=== PATIENT | male | born 1960 | race Caucasian/White ===

== ENCOUNTER 2019-07-02 01:50 | Emergency (ER) | payer OTHER ==
[2019-07-02] MEDS ORDERED: MORPHINE 4 MG/ML SYR ONE (02:32)
[2019-07-02] MEDS ORDERED: ONDANSETRON 4 MG/2 ML VIAL ONE (02:33)
[2019-07-02 02:54] LABS: Absolute Lymphocytes (CBC) 1.6 K/uL (0.7-4.9); Basophils % 0.2 % (0-1.3); Hematocrit 44.9 % (39.6-49.0); Lymphocytes % 11.4 % (15.3-44.8); MPV 9.2 fL (7.6-11.3); RBC Red Blood Cell Count 4.51 M/uL (4.33-5.43)
[2019-07-02] MEDS ORDERED: KETOROLAC 30 MG/ML INJ ONE (03:07)
[2019-07-02 03:11] LABS: Bilirubin Direct 0.2 mg/dL (0-0.2); Bilirubin Total 0.5 mg/dL (0.2-1.0); Potassium 3.9 mmol/L (3.5-5.1); Protein, Total 7.4 g/dL (6.4-8.2)
--- NOTE | 2019-07-02 04:40 | ER ---
Nurse's Notes [facility] Name: Efrem Euceda Age: 58 yrs Sex: Male : 1960 Arrival Date: 07/02/2019 Time: 01:54 Bed 19 Private MD: Diagnosis: Calculus of ureter Presentation: 07/02 02:10 Presenting complaint: Patient states: Low back pain mainly on the right side with cc3 bilateral lower abdominal pain radiating to groin that started 2-3 hours ago; had an episode of vomiting at home once. Transition of care: patient was not received from another setting of care. Onset of symptoms was July 02, 2019. Risk Assessment: Do you want to hurt yourself or someone else? Patient reports no desire to harm self or others. Initial Sepsis Screen: Does the patient meet any 2 criteria? No. Patient's initial sepsis screen is negative. Does the patient have a suspected source of infection? No. Patient's initial sepsis screen is negative. Care prior to arrival: None. 02:10 Method Of Arrival: Ambulatory cc3 02:10 Acuity: AMOS 3 cc3 Triage Assessment: 02:30 General: Appears in no apparent distress. uncomfortable, Behavior is calm, cooperative, cc3 appropriate for age. Pain: Complains of pain in right flank and bilateral lower abdomen Pain radiates to back and groin Pain currently is 10 out of 10 on a pain scale. Quality of pain is described as aching, sharp, Pain began 3 hours ago. EENT: No signs and/or symptoms were reported regarding the EENT system. Neuro: Level of Consciousness is awake, alert, obeys commands, Oriented to person, place, time, situation, Appropriate for age. Cardiovascular: Denies chest pain, Capillary refill < 3 seconds Patient's skin is warm and dry. Respiratory: Airway is patent Respiratory effort is even, unlabored, Respiratory pattern is regular, symmetrical. GI: Abdomen is round Reports lower abdominal pain, vomiting. : No signs and/or symptoms were reported regarding the genitourinary system. Derm: Skin is intact, is healthy with good turgor, Skin is pink, warm \T\ dry. normal. Musculoskeletal: Circulation, motion, and sensation intact. Range of motion: intact in all extremities. Historical: - Allergies: 02:10 No Known Allergies; cc3 - Home Meds: 02:10 Metoprolol Tartrate Oral [Active]; Allopurinol Oral [Active]; cc3 lisinopril-hydrochlorothiazide oral oral [Active]; prevastatin [Active]; Omeprazole Oral [Active]; Xarelto oral oral [Active]; - PMHx: 02:10 Atrial Fib; Kidney stones; Hypertension; cc3 - Immunization history:: Adult Immunizations up to date. - Social history:: Smoking status: Patient/guardian denies using tobacco, the patient reports quitting approximately 15 years ago. - Ebola Screening: : No symptoms or risks identified at this time. Screenin:30 Abuse screen: Denies threats or abuse. Denies injuries from another. Nutritional cc3 screening: No deficits noted. Tuberculosis screening: No symptoms or risk factors identified. Fall Risk Ambulatory Aid- None/Bed Rest/Nurse Assist (0 pts). Gait- Normal/Bed Rest/Wheelchair (0 pts) Mental Status- Oriented to own ability (0 pts). Assessment: 02:30 GI: Bowel sounds present X 4 quads. Abd is soft and non tender X 4 quads. cc3 03:00 Reassessment: Patient appears in no apparent distress at this time. Patient and/or cc3 family updated on plan of care and expected duration. Pain level reassessed. Patient is alert, oriented x 3, equal unlabored respirations, skin warm/dry/pink. Patient came back from CT scan department, awaiting result. 04:58 Reassessment: Patient appears in no apparent distress at this time. Patient and/or cc3 family updated on plan of care and expected duration. Pain level reassessed. Patient is alert, oriented x 3, equal unlabored respirations, skin warm/dry/pink. Dr. Ingram discharged the patient home with prescriptions given. IV cannula removed and patient left ER vitally stable and ambulatory. No valuables left in the patient's room. Patient denies pain at this time. Patient states feeling better. Patient states symptoms have improved. Vital Signs: 02:10 BP 150 / 94; Pulse 74; Resp 20 S; Temp 97.7(O); Pulse Ox 98% on R/A; Weight 99.79 kg cc3 (R); Height 5 ft. 8 in. (172.72 cm) (R); Pain 10/10; 03:55 BP 114 / 77; Pulse 73; Resp 17 S; Pulse Ox 96% on R/A; Pain 3/10; cc3 04:45 BP 109 / 77; Pulse 76; Resp 18 S; Pulse Ox 96% on R/A; Pain 0/10; cc3 02:10 Body Mass Index 33.45 (99.79 kg, 172.72 cm) cc3 ED Course: 01:54 Patient arrived in ED. es 02:12 Thanh Ingram MD is Attending Physician. tw4 02:30 Sangita Russell is Primary Nurse. cc3 02:30 Arm band placed on right wrist. Patient notified of wait time. cc3 02:30 Patient has correct armband on for positive identification. Bed in low position. Call cc3 light in reach. Side rails up X 1. Pulse ox on. NIBP on. 02:40 Inserted saline lock: 22 gauge in left wrist, using aseptic technique. Blood collected. cc3 02:48 Triage completed. cc3 02:50 Missed attempt(s): 20 gauge in right antecubital area. cm6 03:02 CT Stone Protocol In Process Unspecified. EDMS 05:00 No provider procedures requiring assistance completed. IV discontinued, intact, cc3 bleeding controlled, No redness/swelling at site. Pressure dressing applied. Administered Medications: 02:40 Drug: morphine 4 mg {Note: RASS 0.} Route: IVP; Site: left wrist; cc3 03:00 Follow up: Response: No adverse reaction; Pain is unchanged, physician notified; RASS: cc3 Alert and Calm (0) 02:43 Drug: Zofran 4 mg Route: IVP; Site: left wrist; cc3 03:56 Follow up: Response: No adverse reaction; Nausea is decreased cc3 03:05 Drug: TORadol 30 mg Route: IVP; Site: left wrist; cc3 03:56 Follow up: Response: No adverse reaction; Pain is decreased cc3 Outcome: 04:39 Discharge ordered by . tw4 04:58 Patient left the ED. cc3 04:58 Discharged to home ambulatory. cc3 04:58 Condition: stable 04:58 Discharge instructions given to patient, Instructed on discharge instructions, follow up and referral plans. medication usage, Demonstrated understanding of instructions, follow-up care, medications, Prescriptions given X 4. Signatures: Dispatcher [employer] EDMS Contreras Lizy es [place], Thanh, MD MD tw4 Sangita Russell cc3 Heather Cruz cm6 Corrections: (The following items were deleted from the chart) 03:57 03:55 BP 114 / 77; Pulse 73bpm; Resp 17bpm; Spontaneous; Pulse Ox 96% RA; cc3 cc3
--- NOTE | 2019-07-02 04:41 | EDPHYS ---
Physician Documentation [facility] Name: Efrem Euceda Age: 58 yrs Sex: Male : 1960 Arrival Date: 07/02/2019 Time: 01:54 Bed 19 Private MD: ED Physician Thanh Ingram HPI: 07/02 04:36 This 58 yrs old Male presents to ER via Ambulatory with complaints of tw4 Possible Kidney Stone. 04:36 The patient presents with flank pain, described as sharp, of the right low back, that tw4 radiates to the groin, right femoral area and right inguinal area. Onset: The symptoms/episode began/occurred just prior to arrival, 2 hour(s) ago. Modifying factors: The symptoms are alleviated by nothing, the symptoms are aggravated by nothing. Associated signs and symptoms: The patient has no apparent associated signs or symptoms. Severity of symptoms: At their worst the symptoms were moderate, in the emergency department the symptoms are unchanged. The patient has experienced similar episodes in the past, several times, and the symptoms today are exactly the same, to when the patient was apparently diagnosed with kidney stones. Historical: - Allergies: 02:10 No Known Allergies; cc3 - Home Meds: 02:10 Metoprolol Tartrate Oral [Active]; Allopurinol Oral [Active]; cc3 lisinopril-hydrochlorothiazide oral oral [Active]; prevastatin [Active]; Omeprazole Oral [Active]; Xarelto oral oral [Active]; - PMHx: 02:10 Atrial Fib; Kidney stones; Hypertension; cc3 - Immunization history:: Adult Immunizations up to date. - Social history:: Smoking status: Patient/guardian denies using tobacco, the patient reports quitting approximately 15 years ago. - Ebola Screening: : No symptoms or risks identified at this time. ROS: 04:36 Constitutional: Negative for fever, chills, and weight loss, Eyes: Negative for injury, tw4 pain, redness, and discharge, Cardiovascular: Negative for chest pain, palpitations, and edema, Respiratory: Negative for shortness of breath, cough, wheezing, and pleuritic chest pain, Abdomen/GI: Negative for abdominal pain, nausea, vomiting, diarrhea, and constipation, MS/Extremity: Negative for injury and deformity, Skin: Negative for injury, rash, and discoloration, Neuro: Negative for headache, weakness, numbness, tingling, and seizure. 04:36 Back: Positive for flank pain, on the right. Exam: 04:36 Constitutional: This is a well developed, well nourished patient who is awake, alert, tw4 and in no acute distress. Head/Face: Normocephalic, atraumatic. Chest/axilla: Normal chest wall appearance and motion. Nontender with no deformity. No lesions are appreciated. Cardiovascular: Regular rate and rhythm with a normal S1 and S2. No gallops, murmurs, or rubs. Normal PMI, no JVD. No pulse deficits. Respiratory: Lungs have equal breath sounds bilaterally, clear to auscultation and percussion. No rales, rhonchi or wheezes noted. No increased work of breathing, no retractions or nasal flaring. Abdomen/GI: Soft, non-tender, with normal bowel sounds. No distension or tympany. No guarding or rebound. No evidence of tenderness throughout. MS/ Extremity: Pulses equal, no cyanosis. Neurovascular intact. Full, normal range of motion. Neuro: Awake and alert, GCS 15, oriented to person, place, time, and situation. Cranial nerves II-XII grossly intact. Motor strength 5/5 in all extremities. Sensory grossly intact. Cerebellar exam normal. Normal gait. 04:36 Back: CVA tenderness, is noted on the right. Vital Signs: 02:10 BP 150 / 94; Pulse 74; Resp 20 S; Temp 97.7(O); Pulse Ox 98% on R/A; Weight 99.79 kg cc3 (R); Height 5 ft. 8 in. (172.72 cm) (R); Pain 10/10; 03:55 BP 114 / 77; Pulse 73; Resp 17 S; Pulse Ox 96% on R/A; Pain 3/10; cc3 04:45 BP 109 / 77; Pulse 76; Resp 18 S; Pulse Ox 96% on R/A; Pain 0/10; cc3 02:10 Body Mass Index 33.45 (99.79 kg, 172.72 cm) cc3 MDM: 02:12 Patient medically screened. tw4 04:36 Differential diagnosis: Dawson catheter problem, prostatitis. Data reviewed: vital tw4 signs, nurses notes. Data interpreted: Pulse oximetry: Interpretation: normal. Counseling: I had a detailed discussion with the patient and/or guardian regarding: the historical points, exam findings, and any diagnostic results supporting the discharge/admit diagnosis. Medication response: morphine partially relieved the patient's pain, Toradol markedly relieved the patient's pain. Response to treatment: and as a result, I will discharge patient. Special discussion: I discussed with the patient/guardian in detail that at this point there is no indication for admission to the hospital. It is understood, however, that if the symptoms persist or worsen the patient needs to return immediately for re-evaluation. 04:36 Data reviewed: lab test result(s), CBC, electrolytes. Counseling: I had a detailed discussion with the patient and/or guardian regarding: lab results, radiology results. 07/02 02:13 Order name: Basic Metabolic Panel; Complete Time: 04:54 07/02 04:54 Interpretation: Normal except: CL 108; BUN 23; CRE 1.80; GFR 39. 07/02 02:13 Order name: CBC with Diff; Complete Time: 04:54 07/02 04:55 Interpretation: Normal except: WBC 13.8; KWABENA% 83.9; LYM% 11.4; NEUT A 11.5. 07/02 02:13 Order name: Creatinine for Radiology; Complete Time: 04:54 07/02 04:55 Interpretation: Normal except: CRE 1.76; GFR 40. 07/02 02:13 Order name: Hepatic Function; Complete Time: 04:54 07/02 04:55 Interpretation: Within normal limits. 07/02 02:13 Order name: Lipase; Complete Time: 04:54 07/02 04:55 Interpretation: Within normal limits: LIP 125. 07/02 02:13 Order name: CT Stone Protocol 07/02 02:13 Order name: IV Saline Lock; Complete Time: :44 07/02 02:13 Order name: Labs collected and sent; Complete Time: :44 Administered Medications: 02:40 Drug: morphine 4 mg {Note: RASS 0.} Route: IVP; Site: left wrist; cc3 03:00 Follow up: Response: No adverse reaction; Pain is unchanged, physician notified; RASS: cc3 Alert and Calm (0) 02:43 Drug: Zofran 4 mg Route: IVP; Site: left wrist; cc3 03:56 Follow up: Response: No adverse reaction; Nausea is decreased cc3 03:05 Drug: TORadol 30 mg Route: IVP; Site: left wrist; cc3 03:56 Follow up: Response: No adverse reaction; Pain is decreased cc3 Disposition: 07/02/19 04:39 Discharged to Home. Impression: Calculus of ureter. - Condition is Stable. - Discharge Instructions: Kidney Stones. - Prescriptions for Tylenol- Codeine #3 300-30 mg Oral Tablet - take 2 tablet by ORAL route every 6 hours As needed; 30 tablet. Zofran 4 mg Oral Tablet - take 1 tablet by ORAL route every 12 hours As needed; 6 tablet. Tramadol 50 mg Oral Tablet - take 1 tablet by ORAL route every 8 hours as needed; 12 tablet. Flomax 0.4 mg Oral Capsule, Sust. Release 24 hr - take 1 capsule by ORAL route once daily 1/2 hour following the same meal each day; 30 capsule. - Medication Reconciliation Form, Thank You Letter, Antibiotic Education, Prescription Opioid Use form. - Follow up: Private Physician; When: Upon discharge from the Emergency Department; Reason: If symptoms return, Recheck today's complaints, Continuance of care. - Problem is new. - Symptoms have improved. Signatures: Dispatcher [employer] Thanh Phan MD MD tw4 Sangita Russell cc3 Corrections: (The following items were deleted from the chart) 04:58 04:39 07/02/2019 04:39 Discharged to Home. Impression: Calculus of ureter. Condition is cc3 Stable. Forms are Medication Reconciliation Form, Thank You Letter, Antibiotic Education, Prescription Opioid Use. Follow up: Private Physician; When: Upon discharge from the Emergency Department; Reason: If symptoms return, Recheck today's complaints, Continuance of care. Problem is new. Symptoms have improved. tw4
--- NOTE | 2019-07-04 11:12 | RAD REPORT ---
EXAM DESCRIPTION: CT - Stone Protocol - 07/02/2019 6:04 am CLINICAL HISTORY: FLANK PAIN COMPARISON: None. TECHNIQUE: CT ABDOMEN PELVIS WITHOUT IV CONTRAST on 07/02/2019 2:13 AM CDT This exam was performed according to our departmental dose-optimization program, which includes autom ated exposure control, adjustment of the mA and/or kV according to patient size and/or use of iterati ve reconstruction technique. FINDINGS: Lower lungs are clear. Abdomen: The liver is normal in appearance. There is no biliary dilatation. There is a moderate hiata l hernia. Gallbladder is decompressed. The pancreas and spleen are normal in appearance. There are mu ltiple calculi within both kidneys measuring up to 6 mm. There is mild right hydronephrosis secondary to a 4 mm right UVJ calculus. There are small fat-containing bilateral hernias. Abdominal aorta is normal in course and caliber without aneurysm. There is no free air. There is no r etroperitoneal adenopathy. Pelvis: There is no bowel obstruction. Urinary bladder is unremarkable. There is no free fluid. Appen samy is normal. Skeleton: There are no acute osseous findings. No suspicious bony lesions. IMPRESSION: Bilateral nephrolithiasis with mildly obstructing 4 mm right UVJ calculus. Electronically signed by: Javi Echeverria MD 07/02/2019 3:14 AM CDT Due to temporary technical issues with the PACS/Fluency reporting system, reports are being signed by the in house radiologist as a courtesy to ensure prompt reporting. The interpreting radiologist is f ully responsible for the content of the report.
== END 2019-07-02 04:58 | disposition home or self-care (01) ==
LOC: ER 01:50
DX: N20.1 Calculus of ureter (principal); I10 Essential (primary) hypertension; I48.91 Unspecified atrial fibrillation; Z79.01 Long term (current) use of anticoagulants; Z87.442 Personal history of urinary calculi
CPT/HCPCS: 85025; 80048; 36415; 80076; 83690; 76377; 74176; 96375; 96374; 99284; J2405

== ENCOUNTER 2023-09-30 11:05 | Emergency (ER) | payer BC ==
--- OUTSIDE RECORDS SUMMARY | 2023-09-30 11:09 | XMS REPORT | Continuity of Care Document ---
:1960 Author Organization [facility] t Address [address] [place] [address] [place] [id number] Care Team Providers Name Role Phone Unavailable Unavailable Unavailable Problems This patient has no known problems. Allergies, Adverse Reactions, Alerts This patient has no known allergies or adverse reactions. Social History Social Habit Start Date Stop Date Quantity Comments Source Sexual orientation Method [facility] Sex Assigned At [birth year] [facility] 00:00:00 00:00:00 Smoking Status Start Date Stop Date Source Tobacco smoking consumption unknown [facility] Medications This patient has no known medications. Procedures This patient has no known procedures. Encounters Start End Encounter Admission Attending Care Care Encounter Source Date/Time Date/Time Type Type Clinicians Facility Department ID 2022-08-06 2022-08-06 Emergency [facility] [id number] [place] 00:00:00 00:00:[address] Results This patient has no known results.
[2023-09-30] MEDS ORDERED: MAGNESIUM SULFATE 1 gm IVPB 1 GM/100 ML BAG IV ONE (11:43)
[2023-09-30 11:46] LABS: Absolute Lymphocytes (CBC) 1.3 K/uL (0.7-4.9); Lymphocytes % 16.3 % (15.3-44.8); MPV 8.1 fL (7.6-11.3); Platelets 220 thou/uL (152-406)
[2023-09-30 11:54] LABS: Specific Gravity 1.014 (1.005-1.030); Urine Bilirubin NEGATIVE (Negative); Urine Blood Negative (Negative); Urine Clarity Clear (Clear); Urine Color Light-Yellow (Yellow); Urine Glucose NEGATIVE (Negative); Urine Protein NEGATIVE (Negative); Urine Urobilinogen Normal (Normal); Urine pH 5.5 (5.0-7.0)
--- NOTE | 2023-09-30 12:20 | RAD REPORT ---
EXAM DESCRIPTION: CT - Stone Protocol - 09/30/2023 11:22 am CLINICAL HISTORY: pain, hx of stones COMPARISON: Stone Protocol dated 07/02/2019; CTSTONE PROTOCOL dated 06/09/2014; CT-STONE PROTOCOL dated 12/29/2007; CT-STONE PROTOCOL dated 12/26/2007 TECHNIQUE: Thin cut axial CT imaging of the abdomen and pelvis was performed without IV contrast. Mu ltiplanar reformats were generated and reviewed. All CT scans are performed using dose optimization technique as appropriate and may include automated exposure control or mA/KV adjustment according to patient size. FINDINGS: No suspicious findings in the lung bases. The liver, spleen, adrenal glands, and pancreas show no suspicious findings. Gallbladder and biliary tree are also without suspicious finding. Symmetric renal contour, without suspicious parenchymal findings within limits of noncontrast techniq ue. Left mild hydro nephrosis and hydroureter. 6 millimeter distal left ureter calculus, approximatel y 2 cm proximal to the vesicoureteral junction. Other bilateral nonobstructing renal calculi, largest at the right lower pole measuring 9 millimeter, and the left interpolar region also measuring 9 mill imeter. Moderate to large hiatal hernia. No dilated bowel loops or bowel wall thickening. No free air, free f luid or inflammatory stranding. Bilateral inguinal hernias containing fat. No suspicious mass or bulk y lymphadenopathy. The urinary bladder is without significant finding. No suspicious bony findings. IMPRESSION: Mild left hydroureteronephrosis. 6 millimeter nonobstructing calculus along the distal l eft ureter. Other bilateral nonobstructing renal calculi, up to 9 millimeter in greatest dimension. Moderate to large hiatal hernia. The findings were communicated to Rodrigo Jackson on 09/30/2023 at 11:55 hours.
[2023-09-30 12:29] LABS: Albumin 3.1 g/dL (3.4-5.0); Bilirubin Total 0.5 mg/dL (0.2-1.0); Potassium 3.8 mEq/L (3.5-5.1); Protein, Total 6.6 g/dL (6.4-8.2)
--- NOTE | 2023-09-30 12:39 | ER ---
Nurse's Notes [facility] Name: Efrem Euced[facility] Age: 63 yrs Sex: Male : 1960 Arrival Date: 09/30/2023 Time: 11:05 Bed 13 Private MD: Diagnosis: Calculus of ureter;Chronic kidney disease, unspecified Presentation: 09/30 11:15 Chief complaint: Left flank pain x 5 days. Seen at [facility] on 09/26, scan showed 4 mm hb obstructing stone in left proximal ureter, sent home on Flomax and Zofran. Coronavirus screen: At this time, the client does not indicate any symptoms associated with coronavirus-19. Ebola Screen: No symptoms or risks identified at this time. Initial Sepsis Screen: Does the patient meet any 2 criteria? No. Patient's initial sepsis screen is negative. Does the patient have a suspected source of infection? No. Patient's initial sepsis screen is negative. Risk Assessment: Do you want to hurt yourself or someone else? Patient reports no desire to harm self or others. Onset of symptoms was September 26, 2023. 11:15 Method Of Arrival: Ambulatory hb 11:15 Acuity: AMOS 3 hb Triage Assessment: 12:00 General: Behavior is calm, cooperative, appropriate for age. ko1 Historical: - Allergies: 11:18 No Known Allergies; hb - PMHx: 11:18 Atrial Fib; Hypertension; Kidney stones; hb - Immunization history:: Adult Immunizations up to date. - Social history:: Smoking status: Patient denies any tobacco usage or history of. - Family history:: not pertinent. - Hospitalizations: : No recent hospitalization is reported. Screenin:30 [facility] ED Fall Risk Assessment (Adult) History of falling in the last 3 months, ko1 including since admission No falls in past 3 months (0 pts) Confusion or Disorientation No (0 pts) Intoxicated or Sedated No (0 pts) Impaired Gait No (0 pts) Mobility Assist Device Used No (0 pt) Altered Elimination No (0 pt) Score/Fall Risk Level 0 - 2 = Low Risk Oriented to surroundings, Maintained a safe environment, Educated pt \T\ family on fall prevention, incl call for assistance when getting out of bed, Assessed \T\ reinforced patient's understanding of fall precautions, Provided non-skid footwear, Hourly rounding (assess needs \T\ fall precautionary measures) done, Used ambulatory aids as needed (educated on \T\ assisted with). Abuse screen: Denies threats or abuse. Denies injuries from another. Nutritional screening: No deficits noted. Tuberculosis screening: No symptoms or risk factors identified. Assessment: 11:15 General: Appears in no apparent distress. uncomfortable. Pain: Complains of pain in ko1 abdomen. Neuro: No deficits noted. Cardiovascular: No deficits noted. Respiratory: No deficits noted. GI: Bowel sounds present X 4 quads. Abd is soft X 4 quads. : No deficits noted. EENT: No deficits noted. Derm: No deficits noted. Musculoskeletal: No deficits noted. Vital Signs: 11:15 BP 130 / 85; Pulse 89; Resp 16; Temp 98.4(O); Pulse Ox 98% on R/A; Weight 99.79 kg; hb Height 5 ft. 8 in. ; Pain 5/10; 11:30 BP 114 / 82; Pulse 71; Resp 16; Pulse Ox 99% ; ko1 12:30 BP 121 / 83; Pulse 74; Resp 16; Pulse Ox 99% ; ko1 13:29 BP 118 / 80; Pulse 77; Resp 14; Pulse Ox 99% ; ko1 11:15 Body Mass Index 33.45 (99.79 kg, 172.72 cm) hb 11:15 Pain Scale: Adult hb ED Course: 11:09 Patient arrived in ED. mr 11:10 Charlene Pink, RN is Primary Nurse. ko1 11:10 Rodrigo Jackson MD is Attending Physician. rn 11:17 Triage completed. hb 11:18 Arm band placed on. hb 11:24 CT Stone Protocol In Process Unspecified. EDMS 11:40 Inserted saline lock: 22 gauge in left antecubital area, using aseptic technique. Blood ko1 collected. 11:43 CBC with Diff Sent. ko1 11:43 CMP Sent. ko1 11:43 Urinalysis w/ reflexes Sent. ko1 12:30 Patient has correct armband on for positive identification. Bed in low position. Call ko1 light in reach. Provided Education on: labs. Pulse ox on. NIBP on. 12:30 No provider procedures requiring assistance completed. ko1 13:29 IV discontinued, intact, bleeding controlled, No redness/swelling at site. Pressure ko1 dressing applied. Administered Medications: 11:42 Drug: Magnesium Sulfate IVPB 1 grams IVPB once over 1 hrs Route: IVPB; Infused Over: 1 ko1 hrs; Site: left antecubital; 13:07 Follow up: Response: No adverse reaction; IV Status: Completed infusion; IV Intake: ko1 100ml 12:42 Drug: Ketorolac IVP 15 mg IVP once Route: IVP; Site: left antecubital; ko1 13:07 Follow up: Response: No adverse reaction ko1 12:42 Drug: morphine IVP or IV 2 mg IVP once over 4 mins Route: IVP; Infused Over: 4 mins; ko1 Site: left antecubital; 13:07 Follow up: Response: No adverse reaction; Pain is decreased ko1 12:42 Drug: NS 0.9% IV 500 ml IV at bolus once Route: IV; Rate: bolus; Site: left antecubital;ko1 13:23 Follow up: Response: No adverse reaction; IV Status: Completed infusion; IV Intake: ko1 500ml Medication: 12:30 VIS not applicable for this client. ko1 Intake: 13:07 IV: 100ml; Total: 100ml. ko1 13:23 IV: 500ml; Total: 600ml. ko1 Outcome: 12:39 Discharge ordered by . rn 13:29 Discharged to home ambulatory, ko1 13:29 Condition: stable 13:29 Discharge instructions given to patient, Instructed on discharge instructions, follow up and referral plans. medication usage, urine strainer, Demonstrated understanding of instructions, follow-up care, medications, Prescriptions given X 2, 13:30 Patient left the ED. ko1 Signatures: Dispatcher [employer] EDWY Guera Seo, Reg Rodrigo James MD MD rn Baxter, Heather, RN RN hb Oliver, Kathy, RN RN ko1
--- NOTE | 2023-09-30 12:39 | EDPHYS ---
Physician Documentation [facility] Name: Efrem Euceda Age: 63 yrs Sex: Male : 1960 Arrival Date: 09/30/2023 Time: 11:05 Bed 13 Private MD: ED Physician Rodrigo Jackson HPI: 09/30 11:17 This 63 yrs old Male presents to ER via Unassigned with complaints of Possible Kidney rn Stone. 11:17 The patient presents with abdominal pain. Onset: The symptoms/episode began/occurred 4 rn day(s) ago. The symptoms radiate to abdomen. Associated signs and symptoms: Pertinent negatives: blood in stools, fever, vomiting, vomiting blood. The symptoms are described as crampy, sharp. Modifying factors: The symptoms are alleviated by Ibuprofen. the symptoms are aggravated by nothing. Severity of pain: At its worst the pain was moderate in the emergency department the pain has improved. The patient has experienced similar episodes in the past. Patient with history of multiple kidney stones in the past. Seen at [facility] emergency room a few days ago and diagnosed with a 4 mm left ureteral stone with mild hydro-. Reports pain has markedly improved with ibuprofen, but still has pain on the left side and is wondering if the stone is moving or if it stuck. No fever. No vomiting.. Historical: - Allergies: 11:18 No Known Allergies; hb - PMHx: 11:18 Atrial Fib; Hypertension; Kidney stones; hb - Immunization history:: Adult Immunizations up to date. - Social history:: Smoking status: Patient denies any tobacco usage or history of. - Family history:: not pertinent. - Hospitalizations: : No recent hospitalization is reported. ROS: 11:17 Constitutional: Negative for fever, chills, and weight loss, Cardiovascular: Negative rn for chest pain, palpitations, and edema, Respiratory: Negative for shortness of breath, cough, wheezing, and pleuritic chest pain, Abdomen/GI: Positive for left-sided abdominal pain Back: Negative for injury and pain, : Negative for injury, bleeding, discharge, and swelling, MS/Extremity: Negative for injury and deformity, Neuro: Negative for headache, weakness, numbness, tingling, and seizure, Exam: 11:17 Constitutional: This is a well developed, well nourished patient who is awake, alert, rn and in no acute distress. Ambulatory to room without assistance and appears comfortable Cardiovascular: Regular rate and rhythm. No pulse deficits. Respiratory: No increased work of breathing, no retractions or nasal flaring. Abdomen/GI: Soft, nontender, no distention Back: No spinal tenderness. No costovertebral tenderness. Full range of motion. Vital Signs: 11:15 BP 130 / 85; Pulse 89; Resp 16; Temp 98.4(O); Pulse Ox 98% on R/A; Weight 99.79 kg; hb Height 5 ft. 8 in. ; Pain 5/10; 11:30 BP 114 / 82; Pulse 71; Resp 16; Pulse Ox 99% ; ko1 12:30 BP 121 / 83; Pulse 74; Resp 16; Pulse Ox 99% ; ko1 13:29 BP 118 / 80; Pulse 77; Resp 14; Pulse Ox 99% ; ko1 11:15 Body Mass Index 33.45 (99.79 kg, 172.72 cm) hb 11:15 Pain Scale: Adult hb MDM: 11:10 Patient medically screened. rn 12:37 Differential diagnosis: non-specific abd pain, Ureterolithiasis, urinary tract rn infection. Data reviewed: vital signs, nurses notes, lab test result(s), radiologic studies, CT scan, and as a result, I will discharge patient. External Records Reviewed: Outside ED record: Reviewed ED record and results from [facility] emergency room a few days ago. Shows proximal left-sided stone with mild hydro-.. Care significantly affected by the following chronic conditions: Chronic Kidney Disease, Patient reports sees nephrology for chronic kidney disease.. Counseling: I had a detailed discussion with the patient and/or guardian regarding the historical points, exam findings, and any diagnostic results supporting the discharge/admit diagnosis, lab results, radiology results, the need for outpatient follow up, to return to the emergency department if symptoms worsen or persist or if there are any questions or concerns that arise at home. Response to treatment: the patient's symptoms have markedly improved after treatment, and as a result, I will discharge patient. Special discussion: I discussed with the patient/guardian in detail that at this point there is no indication for admission to the hospital. It is understood, however, that if the symptoms persist or worsen the patient needs to return immediately for re-evaluation. Based on the history and exam findings, there is no indication for further emergent testing or inpatient evaluation. I discussed with the patient/guardian the need to see the urologist for further evaluation of the symptoms. ED course: Stone has moved, was proximal few days ago and now distal with only 2 cm to go. Pain controlled. Will DC home with return precautions and urology follow-up. 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 I have personally reviewed all of the results, including but not limited to blood tests and imaging deemed necessary to safely discharge this patient at this time. All results given to and printed out for patient. I personally went over all the results with the patient and answered all questions. Patient will follow-up with PCP and or specialist as discussed. Return precautions given and understood.. 09/30 11:11 Order name: CBC with Diff; Complete Time: 12:13 rn 09/30 11:11 Order name: CMP; Complete Time: 12:31 rn 09/30 11:12 Order name: Urinalysis w/ reflexes; Complete Time: 12:13 rn 09/30 11:11 Order name: CT Stone Protocol; Complete Time: 12:21 rn 09/30 11:11 Order name: IV Saline Lock; Complete Time: 11:43 rn 09/30 11:11 Order name: Labs collected and sent; Complete Time: 11:43 rn 09/30 11:51 Order name: Labs - recollect needed: recollect green top; Complete Time: 12:06 bd Administered Medications: 11:42 Drug: Magnesium Sulfate IVPB 1 grams IVPB once over 1 hrs Route: IVPB; Infused Over: 1 ko1 hrs; Site: left antecubital; 13:07 Follow up: Response: No adverse reaction; IV Status: Completed infusion; IV Intake: ko1 100ml 12:42 Drug: Ketorolac IVP 15 mg IVP once Route: IVP; Site: left antecubital; ko1 13:07 Follow up: Response: No adverse reaction ko1 12:42 Drug: morphine IVP or IV 2 mg IVP once over 4 mins Route: IVP; Infused Over: 4 mins; ko1 Site: left antecubital; 13:07 Follow up: Response: No adverse reaction; Pain is decreased ko1 12:42 Drug: NS 0.9% IV 500 ml IV at bolus once Route: IV; Rate: bolus; Site: left antecubital;ko1 13:23 Follow up: Response: No adverse reaction; IV Status: Completed infusion; IV Intake: ko1 500ml Disposition Summary: 09/30/23 12:39 Discharge Ordered Notes: Location: Home rn Problem: new rn Symptoms: have improved rn Condition: Stable rn Diagnosis - Calculus of ureter rn - Chronic kidney disease, unspecified rn Followup: rn - With: Private Physician - When: As needed - Reason: Recheck today's complaints, Re-evaluation by your physician Discharge Instructions: - Discharge Summary Sheet rn - Kidney Stones rn - Renal Colic rn - Food Basics for Chronic Kidney Disease rn - Dietary Guidelines to Help Prevent Kidney Stones rn Forms: - Medication Reconciliation Form rn - Thank You Letter rn - Antibiotic 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
[2023-09-30] MEDS ORDERED: MORPHINE 2 MG/ML SYR ONE (12:47)
[2023-09-30] MEDS ORDERED: NA CHLORIDE 0.9% 500 ML ONE (12:47)
[2023-09-30] MEDS ORDERED: KETOROLAC 30 MG/ML INJ ONE (12:47)
[2023-09-30 13:45] VITALS: TEMP 98.4
[2023-09-30 13:48] VITALS: O2SAT 99
[2023-09-30 13:51] VITALS: BP 118/80
== END 2023-09-30 13:30 | disposition home or self-care (01) ==
LOC: ER 11:05
DX: N20.1 Calculus of ureter (principal); Z87.442 Personal history of urinary calculi; I10 Essential (primary) hypertension
CPT/HCPCS: 96365; 85025; 36415; 81003; 80053; 76377; 74176; 96375; 99284; J3475; J2270; J7040

== ENCOUNTER 2023-10-27 10:16 | Day surgery (SDC) | payer BC ==
[2023-10-22 13:19] LABS: Absolute Lymphocytes (CBC) 1.6 K/uL (0.7-4.9); Hematocrit 41.6 % (39.6-49.0); Lymphocytes % 20.8 % (15.3-44.8); MCV 100.2 fL (80-100); MPV 8.1 fL (7.6-11.3); Platelets 273 thou/uL (152-406); RBC Red Blood Cell Count 4.16 M/uL (4.33-5.43)
[2023-10-22 13:52] LABS: Potassium 3.8 mEq/L (3.5-5.1)
[2023-10-27] MEDS ORDERED: Ringers Lactate 1,000 ML IV ONE (10:32)
[2023-10-27] MEDS ORDERED: FENTANYL CITR 100 MCG/2 ML ONE ×2 (10:44→14:00)
[2023-10-27] MEDS ORDERED: propofoL 200 MG/20 ML VIAL IV ONE (10:44)
[2023-10-27] MEDS ORDERED: ONDANSETRON 4 MG/2 ML VIAL ONE (10:44)
[2023-10-27 11:09] LABS: Protime INR 1.02
[2023-10-27] MEDS: CEFAZOLIN SODIUM 2 GM/VIAL ONE ×2 (13:24→13:25)
[2023-10-27] MEDS ORDERED: EPHEDRINE SULF 50 MG/ML VIAL ONE (13:26)
[2023-10-27] MEDS ORDERED: dexAMETHasone 10 MG/ML VIAL ONE (13:27)
[2023-10-27] MEDS ORDERED: GLYCOPYRROLATE 0.2 MG/ML SYR ONE (14:00)
--- NOTE | 2023-10-27 14:26 | RAD REPORT ---
EXAM DESCRIPTION: RAD - Urethrocystogrphy Retrograde - 10/27/2023 2:19 pm CLINICAL HISTORY: STENT EXCHANGE COMPARISON: Urethrocystogrphy Retrograde dated 10/08/2023 FINDINGS: Total fluoro time: 20 seconds
[2023-10-27] MEDS ORDERED: HYDROCODONE/APAP 5/325 MG TAB PO PRN (14:51)
[2023-10-27] MEDS ORDERED: PHENAZOPYRIDINE 100MG TAB PO ONE (14:51)
--- NOTE | 2023-10-27 15:41 | OP ---
Surgeon: LEIGH ARMSTRONG Preoperative Diagnoses: 1.Ureterolithiasis, 6 mm. 2.Nephrolithiasis bilaterally. 3.Left nephrolithiasis with 9 mm, 7 mm, and 4 mm calculi present. Postoperative Diagnoses: 1.Ureterolithiasis, 6 mm. 2.Nephrolithiasis bilaterally. 3.Left nephrolithiasis with 9 mm, 7 mm, and 4 mm calculi present. Principal Procedures: 1.Cystoscopy. 2.Left retrograde pyelography. 3.Left ureteroscopy with pyeloscopy. 4.Left ureteroscopic laser lithotripsy of both the renal and ureteral calculi. 5.Left ureteral stent exchange. Indication For Procedure: The patient presented to the Urology Clinic with signs of acute kidney inj ury associated with an obstructing ureteral calculus. He also had bilateral nephrolithiasis and pres ents today for definitive management of his stones. Procedure In Detail: The patient was consented in the preoperative holding area before being transfe rred to the operative suite where general anesthesia was induced. He was given Ancef 2 g IV antimicr obial prophylaxis, and pneumo boots were provided for DVT prophylaxis. He was placed in the lithotom y position, padded and secured to the table appropriately. His genitalia were prepped with Hibiclens and he was draped in standard fashion. The case was begun using a 22-Wolof rigid cystoscope to tra verse the urethra and into the bladder with relative ease. The bladder was decompressed of fluid and urine, and the ureteral stent was noted emanating from the left ureteral orifice. The coil of the s tent was grasped and the tip of the stent was delivered to the meatus, leaving the proximal coil of t he stent within the proximal ureter. I then advanced a Sensor wire via the stent coiling it within t he putative upper pole calices of the kidney. I removed the stent leaving the wire in place and pass ed over the wire a dual-lumen catheter. A retrograde pyelogram was then performed. Left retrograde pyelography: Using a 70:30 mixture of Omnipaque and saline, contrast was injected vi a the second lumen of the dual-lumen catheter and did propagate up the distal into the mid and proxim al ureter before entering the renal pelvis and calices. Of note, there was some resistance in the di stal ureter in trying to advance the dual-lumen catheter beyond the point in the distal ureter. Ulti mately, I was able to place it into the renal pelvis to dilate the ureter. I then passed a Bentson g uidewire via the second lumen of the dual-lumen catheter coiling it alongside the indwelling safety w lilia before removing the dual-lumen catheter and passing a flexible ureteroscope over the Bentson guid ewire into the upper pole calyx. I then surveyed each of the calices in detail starting in the upper pole down into the upper mid pole before I encountered the first stone in the mid pole posterior loc ation. The stone was approximately 9 mm in diameter, and I began with a power setting of 1 joule and 15 hertz. Because the stone was incredibly hard, I increased the power sequentially ultimately endi ng up at 1.8 joules and 15 hertz before the stone did fragment with relative ease. Once that stone w as fragmented, I then increased to a rate of 25 and ensured to dust the stone into fragments of the s ize of the tip of the laser fiber, which was 200 nm. I then backed the scope out of that rin and a dvanced it into the lower pole where anteriorly, I encountered another calculus that was approximatel y 5 mm in diameter. I similarly utilized the laser fiber and fragmented that stone into dust the siz e of the laser fiber. I then navigated the scope into the lower pole posterior calyx, which maximize d the ability of the scope to flex, before I visualized an additional 8 mm calculus in that location. While targeting the stone was difficult, I was able to get the tip of the laser fiber within proxim ity and was able to largely fragment the calculus and displace it out of the lower pole calyx into th e lower pole anterior calyx previously encountered. There, I was able to completely fragment the sto ne into dust, the size of the laser fiber. I surveyed back into the lower pole posterior calyx and n o significant residual stone fragments were noted. I thus surveyed back through the upper pole into the mid pole calices fragmenting any fragments larger than the size of the laser fiber and breaking t hem down to the size of the laser fiber. Once I surveyed each of the calices with no significant res idual stone size is seen, I then backed the scope into the renal pelvis and surveyed down the proxima l into the mid and distal ureter where I encountered the ureteral calculus, which was likely causing the point of obstruction with passage of the dual-lumen catheter earlier. Because the stone was in t he distal ureter and targeting it was slightly challenging with a flexible ureteroscope, I then switc hed to a semirigid ureteroscope which was advanced up into the distal ureter to the point where the c alculus was observed, and I utilized the laser fiber at a power of 1.0 joules and 8 hertz to fragment that stone into dust, the size of the tip of the laser fiber or slightly larger, but certainly less than one-half of millimeter in diameter. Once this was done, I removed the ureteroscope and backload ed the cystoscope over the indwelling safety wire. I then passed a 6-Wolof x 26 cm double-J uretera l stent into the collecting system with a coil observed fluoroscopically in the renal pelvis on the l eft and one cystoscopically formed in his bladder. I then decompressed his bladder of fluid, urine, and stone dust, which was too small to collect for chemical analysis. The scope was removed, and the patient was taken out of the lithotomy position. He was awakened from general anesthesia, transferr ed to a stretcher, and then transferred to the recovery room in good condition. Complications: None. Discharge Disposition: Given the impacted nature of the distal ureteral calculus with a slight rough appearance of the lateral wall of the distal ureter, I recommend keeping the stent for about 2 weeks before we remove it in clinic cystoscopically. He thus may be scheduled accordingly. He will requi re definitive metabolic profile assessment given his multiple very hard and bilateral renal calculi. He also will require definitive management of his right-sided renal calculi, potentially via ESWL. WR/MODL Voice ID: [id number] Report ID: [id number]
[2023-10-27 16:07] VITALS: BP 111/84; TEMP 97.2; O2SAT 96
== END 2023-10-27 15:50 | disposition home or self-care (01) ==
LOC: OR 10:16
PROVIDERS: ATTEND Urology
PROC: 0T778DZ Dilation of Left Ureter with Intraluminal Device, Via Natural or Artificial Opening Endoscopic (ICD-10-PCS; 2023-10-27)
PROC: 0TF78ZZ Fragmentation in Left Ureter, Via Natural or Artificial Opening Endoscopic (ICD-10-PCS; principal; 2023-10-27 11:45)
DX: N20.2 Calculus of kidney with calculus of ureter (principal); I10 Essential (primary) hypertension; N18.30 Chronic kidney disease, stage 3 unspecified; E78.5 Hyperlipidemia, unspecified; I48.11 Longstanding persistent atrial fibrillation; Z79.01 Long term (current) use of anticoagulants; K21.9 Gastro-esophageal reflux disease without esophagitis
CPT/HCPCS: 87088; 85025; 87086; 80048; 36415 ×2; 85610; 85730; 74450; 51610; 52356; J2704; J3010 ×2; J1100; J2405; J7120